=== PATIENT | male | born 1940 | race Caucasian/White ===

== ENCOUNTER → 2017-02-16 | Outpatient (CLI) | payer MEDICARE, BC ==
--- NOTE | 2017-02-17 07:22 | RADRPT ---
PROCEDURE: CT Chest without contrast. CLINICAL INDICATION: Thoracic aortic aneurysm. TECHNIQUE: Helical axial sections were obtained through the chest without intravenous contrast enh ancement. Coronal and sagittal reformatted images were obtained from the axial source images. Total exam DLP is 737.77 mGy-cm. CTDIvol is 16.78 mGy. One or more of the following dose reduction blade hniques were used: Automated exposure control, adjustment of the mA and/or kV according to patient s ize, use of iterative reconstruction technique. COMPARISON: Noncontrast CT scan of the chest dated 10/14/2013. FINDINGS: There is mild scarring at the lung bases. There is no other airspace or interstitial disease. There is a nodule in the right middle lobe measuring 0.8 x 0.6 cm, unchanged. There is no other pulm onary nodule or mass lesion. There is no mediastinal or hilar lymphadenopathy or mass. There is no axillary, supraclavicular, or internal mammary lymphadenopathy. There is calcification in the aorta consistent with atherosclerosis. The aortic root is dilated measuring 5.4 cm. The ascending aorta is dilated measuring 5.0 cm. The aortic arch measures 3.6 cm. The upper descending aorta measures 3.8 cm and the lower descending aorta measures 3.6 cm. The heart is mildly enlarged. There is coronary artery calcification and there is a stent in the LAD . There is no pleural effusion or pericardial effusion. Images through the upper abdomen demonstrate normal visualized portions of the liver, spleen, and ad renals. There are mild degenerative changes of the spine. There is no fracture or lytic lesion. IMPRESSION: 1. Mild scarring at the lung bases. 2. Nodule in the right middle lobe measuring 0.8 x 0.6 cm, unchanged from 10/14/2013. 3. Atherosclerosis. 4. Dilated aortic root measuring 5.4 cm dilated ascending aorta measuring 5.0 cm, unchanged from th e prior study. 5. The aortic arch and descending aorta are normal in diameter. 6. Mild cardiomegaly. 7. Coronary artery calcification and stent in the LAD. 8. Mild degenerative changes of the spine. RPTAT: QQ .Robi Cowan MD, MD Date Time Electronically viewed and signed by .Robi Cowan MD, on 02/17/2017 07:22 .R/
== END | disposition home or self-care (01) ==
LOC: C/S 15:50
PROVIDERS: ATTEND Internal Medicine Interventional Cardiology
DX: I71.2 Thoracic aortic aneurysm, without rupture (principal)
CPT/HCPCS: 71250